=== PATIENT | male | born 1980 | race Caucasian/White ===

== ENCOUNTER 2019-07-03 13:51 | Inpatient (IN) | payer OTHER ==
[~2019-07-03] VITALS: Ht 170.2 cm; Wt 84.5 kg
--- NOTE | 2019-07-03 14:05 | NUR ---
PT BROUGHT IN BY AMBULANCE WITH CC OF VOMITING BLOOD SECONDARY TO OVEDOSE OF "50-60" PILLS INCLUDING TEGRETOL AND TRILEPTAL PER PT. HE STATES HE DOES NOT KNOW THE REST OF MEDS, PER NURSE AT [facility] HE POSSIBLY TOOK MOTRIN WELL. UPON ASSESSMENT PT STATES HE ATTEMPTED TO COMMIT SUICIDE BY OVERDOSE AND HEARS VOICES THAT TELL HIM TO DO IT. PER MEDIC PT VOMITED APPROX 300ML OF BLOODY EMESIS ON SCENE. PT ARRIVED REPORTING NAUSEA, NGT TO LEFT NARE INSERTED BY [facility]. PT RECEIVED 300ML NS BOLUS TEMPLE MARKER. PT CALM AND COOPERATIVE. A/O X4. RESP EVEN/UNLABORED. 2 [facility] GUARDS AT BEDSIDE.
--- NOTE | 2019-07-03 14:15 | NUR ---
DR. WOODRUFF AT BEDSIDE TO SUCTION PT NGT.
--- NOTE | 2019-07-03 14:24 | NUR ---
PER DR WOODRUFF, KEEP PT ON CONINUOUS SUCTIONING FOR 30 MINUTES AND MONITOR FOR OUTPUT.
--- NOTE | 2019-07-03 14:35 | NUR ---
PT MADE AWARE THE NEED TO COLLECT URINE SAMPLE. URINAL PLACED AT BEDSIDE.
[2019-07-03 14:52] LABS: BASOPHIL % 0.4 % (0-2); PLATELET COUNT 221 x10^3mcL (130-400); RED CELL DISTRIBUTION WIDTH 14.3 % (11.5-14.5)
--- NOTE | 2019-07-03 14:59 | NUR ---
CONTINUOUS SUCTION TURNED OFF. NO OUTPUT NOTED TO SUCTION CANISTER. MADE AWARE. NO NEW ORDERS OBTAINED.
--- NOTE | 2019-07-03 15:00 | NUR ---
PT REQUESTING WATER. PER DR WOODRUFF, PT TO BE NPO FOR NOW. PT MADE AWARE.
--- NOTE | 2019-07-03 15:01 | NUR ---
SPOKE WITH JOSHUA AT POISON CONTROL. DISCUSSED PT'S CASE AND RECEIVED RECOMMENDATION TO OBTAIN CMP,LIVER FUNCTION, EKG, TYLENOL, ASA AND BLOOD ALCOHOL LEVEL. ALSO, GET TEGRETOL LEVEL AND ENSURE THAT IT IS TRENDING DOWN X2. SHE STATED TO REPEAT EVERY 4-6 HOURS. ALSO, TO CHECK EKG THAT QRS DURATION IS LESS THAN 120 SEC, IF NOT PUSH 2 AMPS BICARB BOLUSES. ALSO, IF THE QTC GREATER THAN 104 GET THE K+, CA+ AND MAG LEVEL ON HIGH END OF NORMAL. IF SEIZURE ACTIVITY PUSH ATIVAN.
[2019-07-03 15:04] LABS: CALCIUM 7.8 mg/dL (8.5-10.1); CARBON DIOXIDE 26.2 mmol/L (21-32); CHLORIDE SERUM 107 mmol/L (98-107); GFR1 > 60 mL/min; GLUCOSE SERUM 120 mg/dL (74-106); POTASSIUM SERUM 4.2 mmol/L (3.5-5.1); SODIUM SERUM 139 mmol/L (136-145)
[2019-07-03 15:26] LABS: ALKALINE PHOSPHATASE 105 U/L (46-116); ALT/SGPT 809 U/L (16-63); AST/SGOT 318 U/L (15-37); T4(THYROXINE) 6.5 ug/dL (4.7-13.3)
[2019-07-03] MEDS ORDERED: ABILIFY20 M1 PO (15:29)
[2019-07-03] MEDS ORDERED: EFFEXOR-XR75 MG PO (15:29)
[2019-07-03] MEDS ORDERED: BUSPIRONE HCL30 MG PO (15:29)
--- NOTE | 2019-07-03 15:30 | NUR ---
PT THREW UP 650 ML OF DARK RED BLOOD. MADE AWARE.
[2019-07-03 15:31] LABS: ALBUMIN 2.8 g/dL (3.4-5.0); TOTAL PROTEIN, SERUM 6.1 g/dL (6.4-8.2)
--- NOTE | 2019-07-03 15:32 | NUR ---
PT PULLED OUT NG TUBE. PT STATED "IT'S UNCOMFORTABLE". NG TUBE INTACT. MD MADE AWARE. RECEIVED VERBAL ORDER TO PLACE ANOTHER NG TUBE. PT MADE AWARE. PT REFUSING. MD AWARE.
--- NOTE | 2019-07-03 15:53 | NUR ---
PT HAD ANOTHER EPISODE OF VOMITING. UNMEASURABLE. VOMIT IS DARK RED IN COLOR WITH BLOOD CLOTS. PT C/O NAUSEA AND DR. WOODRUFF MADE AWARE.
--- NOTE | 2019-07-03 15:59 | NUR ---
AFTER DR WOODRUFF MADE AWARE OF 2ND EPISODE OF VOMITING. DR WOODRUFF ASKED TO SET UP FOR INTUBATION.
--- NOTE | 2019-07-03 16:03 | NUR ---
DR WOODRUFF AT BEDSIDE WITH RT. PREPARING FOR INTUBATION.
--- NOTE | 2019-07-03 16:07 | NUR ---
PT INTUBATED AT THIS TIME BY DR WOODRUFF. RT DELONTE AND RT JESSICA AT BEDSIDE TO SECURE TUBE. 20 MG OF ETOMIDATE AND 80 MG OF SUCCS GIVEN PRIOR TO INTUBATON.
--- NOTE | 2019-07-03 16:12 | NUR ---
BILATERAL SOFT RESTRAINTS PLACED ON PT. +PMSC NOTED.
[2019-07-03 16:29] VITALS: BP 106/58
--- NOTE | 2019-07-03 16:33 | NUR ---
PT AGITATED. SITTING UP IN BED. INCREASED PROPOFOL 20MCG/KG.
[2019-07-03 16:35] VITALS: BP 88/49
--- NOTE | 2019-07-03 16:42 | NUR ---
PT CONTINUING TO BE AGITATED AND SITTING UP IN [facility]. PROPOFOL TITRATED TO 30MCG/KG.
--- NOTE | 2019-07-03 16:52 | NUR ---
PT CONTINUING TO KICK HIS LEGS. PROPOFOL TITRATED TO 40 MCG/KG.
--- NOTE | 2019-07-03 17:06 | NUR ---
PT CONTINUES TO SIT UP IN GURNEY AND UNCOMFORTABLE WITH INTUBATION TUBE. PROPOFOL TITRATED TO 50 MCG/KG.
--- NOTE | 2019-07-03 17:24 | NUR ---
SPOKE WITH DR. SALES ON THE PHONE. LET HIM KNOW THAT PT CONTINUES TO BE AGITATED AND IS MAXED OUT ON HIS PROPOFOL. REPORTS THAT HE WILL TAKE A LOOK AT THE ORDERS.
--- NOTE | 2019-07-03 17:24 | NUR ---
ORDAINED MINISTER CALLED ICU TO FIND OUT BED PLACEMENT HOWEVER THERE IS NONE AT THIS TIME. ICU STATED WILL NOT HAVE A BED FOR THSI PT TIL AFTER SHIFT CHANGE TONIGHT.
--- NOTE | 2019-07-03 17:40 | NUR ---
DR. CHADWICK IN TO ASSESS PT IN ED. ATIVAN IV 2MG ORDER ORDERED AND GIVEN. PT NOW SLEEPING AND NO LONGER PULLING AT LINES AND NO LONGER AGITATED.
--- NOTE | 2019-07-03 17:51 | NUR ---
DR CHADWICK ENTERED ROOM TO EVALUATE PT. NOTED NO OUTPUT TO SUCTION CANISTER. ONLY DARK RED, THICK BLOOD NOTED INSIDE NG TUBE. ASKED TO IRRIGATE NG TUBE THEN CLAMP. IRRIGATED WITH NSS UNTIL FLUID CLEAR THEN CLAMPED. 420 NSS INSTILLED. OUTPUT 900 ML OF DARK RED FLUID WITH SOME THICK CLOTS NOTED TO SUCTION CANISTER.
[2019-07-03 17:57] LABS: AMPHETAMINE QUAL UR NONE DETECTED (See below)
--- NOTE | 2019-07-03 18:01 | NUR ---
BP NOTED TO BE 61/40, MAP 46. CALLED DR SALES. PER DR SALES, HANG 500 ML NS BOLUS. AND MONITOR BP. INITIATED AT THIS TIME.
--- NOTE | 2019-07-03 18:25 | NUR ---
500ml ns bolus completed. new bp 94/56 (68). profolol titrated up to 40mcg/kg
--- NOTE | 2019-07-03 18:27 | NUR ---
PT PROVIDED WITH SEVERAL WARM BLANKETS.
--- NOTE | 2019-07-03 18:36 | NUR ---
PT APPEARS TO BE AGITATED STILL. PROPOFOL TITRATED TO 50 MCG/KG. BP 110/56, MAP 92. WILL CONTINUE TO MONITOR.
--- NOTE | 2019-07-03 18:42 | NUR ---
SPOKE TO DR CHADWICK ON THE PHONE REGARDING ADMINISTRATION OF MAG CITRATE. MAG CITRATE TO BE GIVEN FOR CONSTIPATION, HOWEVER, KUB XRAY HAS NOT BEEN OBTAINED. PER DR CHADWICK, OKAY TO HOLD MAG CITRATE UNTIL RESULTS FROM KUB ARE BACK.
--- NOTE | 2019-07-03 19:14 | NUR ---
PT SLEEPING IN GURNEY AT THIS TIME. PT APPEARS TO BE IN NO ACUTE DISTRESS. PT INTUBATED. PT F/C INTACT DRSINING CLEAR LISA URINE TO GRAVITY. 2 CO AT BEDSIDE.
--- NOTE | 2019-07-03 19:17 | NUR ---
DR. BELTRAN MADE AWARE OF BP OF 85/53. N/O OF 500ML NS BOLUS. INITIATED.
--- NOTE | 2019-07-03 19:18 | NUR ---
PER DR. BELTRAN PROPOFOL DRIP REDUCED TO 40MCG/KG AT THIS TIME.
--- NOTE | 2019-07-03 19:48 | NUR ---
PT CONTINUING TO MOVE ABOUT IN [facility] [place]. ATIVAN 2MG SLOW IVP ADMINISTERED PER PRN ORDER.
--- NOTE | 2019-07-03 19:51 | NUR ---
500 ML NS BOLUS COMPLETED. BP 99/72, MAP 81.
--- NOTE | 2019-07-03 20:12 | NUR ---
PT CONTINUES TO MOVE AROUND AND IS AGITATED. SPOKE TO DR SALES ON THE PHONE. DR SALES AWARE OF PT'S AGITATION AND THAT WHEN THE PROPOFOL IS MAXED OUT, PT BECOMES HYPOTENSIVE AND THAT PRN ATIVAN HAS BEEN GIVEN ALREADY. PER DR SALES, HE WILL PUT IN ORDERS. CONTINUING TO REORIENT PT TO HIS SURROUNDINGS AND COMFORT NEEDS MET AT THIS TIME.
--- NOTE | 2019-07-03 20:18 | NUR ---
SPOKE TO DR CHADWICK OVER THE PHONE REGARDING MAG CITRATE ORDER S/P RESULTS OF KUB XRAY. PER DR CHADWICK, CONTINUE WITH ORDER OF MAG CITRATE VIA OGT AT THIS TIME.
--- NOTE | 2019-07-03 20:43 | NUR ---
2ND BOTTLE OF PROPOFOL INITIATED. UPON ASPIRATION OF NG TUBE PRIOR TO ADMINISTRATION OF MAG CITRATE, 20 ML DARK RED BLOOD ASPIRATED. MED HELD. WILL CALL DR CHADWICK.
[2019-07-03 20:45] VITALS: BP 102/60
--- NOTE | 2019-07-03 21:02 | NUR ---
CALLED DR CHADWICK REGARDING MAG CITRATE PER NGT ORDER; UPDATED HIM ABOUT DARK RED BLOOD ASPIRATION; PER DR CHADWICK, HOLD MED, KEEP NGT CLAMPED.
--- NOTE | 2019-07-03 21:31 | NUR ---
PT RESTING COMFORTABLY. OGT IN PLACE. SOFT WRIST RESTRAINTS IN PLACE WITH MD ORDER. + PMCS. CAP REFILL < 3 SEC. REMAINS ON CYTOLOGY LABORATORY MANAGER AND PULSE OX. ALL NEEDS MET AT THIS TIME. TURNED AND REPOSITIONED. WILL MONITOR.
[2019-07-03 22:19] VITALS: BP 102/56
--- NOTE | 2019-07-03 22:29 | NUR ---
PT RESTING IN GURNEY COMFORTABLY. SOFT WRIST RESTRAINTS IN PLACE. CAP REFILL < 3 SEC. 2 INTERMEDIATE GUARDS SWITCHED OUT FOR 2 NEW INTERMEDIATE GUARDS.
--- NOTE | 2019-07-03 23:02 | NUR ---
POISON CONTROL CALLED AND WANTED TO KNOW IF RECOMMENDATIONS WERE FOLLOWED UP ON. POISON CONTROL RECOMMEND TEGRETOL LEVEL BE REPEATED DUE TO IT BEING ELEVATED AT 13.3 UNTIL IT TRENDS DOWN. WILL MAKE MD AWARE.
--- NOTE | 2019-07-03 23:07 | NUR ---
SPOKE WITH DR. Rose Mary SALES TO REQUEST TEGRETOL LEVEL REDRAW PER POISON CONTROL REQUEST. DR. ASLES GAVE ORDER. ORDER PLACED.
--- NOTE | 2019-07-03 23:32 | NUR ---
RECTAL THERMOMETER INSERTED FOR CONTINUOUS TEMPERATURE READING. PT TOLERATED. PT REPOSITIONED IN POSITION OF COMFORT IN SUPINE.
--- NOTE | 2019-07-03 23:45 | NUR ---
PRIOR TO ABX ADMINISTRATION, NOTED THAT BLOOD CULTURES HAD NOT BEEN ORDERED. SPOKE WITH DR SALES ON THE PHONE, ASKED PUT THE ORDER FOR BLOOD CULTURES X2 PRIOR TO ABX ADMINISTRATION.
[2019-07-04] VITALS (17 sets, daily range): BP systolic 82–108; BP diastolic 41–73
--- NOTE | 2019-07-04 00:06 | NUR ---
PT RESTING COMFORTABLY IN BED. NO ACUTE DISTRESS NOTED. ALL NEEDS MET AT THIS TIME. WILL CONT TO MONITOR.
--- NOTE | 2019-07-04 01:01 | NUR ---
IV PROTONIX INITIATED PER ORDER. PT RESTING COMFORTABLY IN GURNEY WITH EYES CLOSED, APPEARS COMFORTABLE. 2 GUARDS REMAIN AT BEDSIDE. NAD NOTED.
--- NOTE | 2019-07-04 01:27 | NUR ---
REPORT GIVEN TO RN MARJAN TO ASSUME CARE FOR PT.
--- NOTE | 2019-07-04 02:04 | NUR ---
ASSUMED PT CARE AT THIS TIME. PT RESTING IN [facility]. RESP E/U, APPEARS IN NO DISTRESS.
--- NOTE | 2019-07-04 02:15 | NUR ---
CALLED DR NORIS SALES FOR SEDATION ORDER; PROPOFOL DRIP , TITRATE PER PROTOCOL FOR SEDATION. ORDER IN CHART.
--- NOTE | 2019-07-04 03:35 | NUR ---
PT RESTING IN GURNEY WITH EYES CLOSED. RESP E/U, APPEARS IN NO ACUTE DISTRESS. NO ACUTE CHANGES IN PT STATUS. CORRECTIONS OFFICERS X2 AT BEDSIDE.
--- NOTE | 2019-07-04 04:30 | NUR ---
PT REMAINS RESTING IN POSITION OF COMFORT; RESP E/U, APPEARS IN NO DISTRESS. NO S/S AGITATION. CORRECTIONS OFFICERS X2 AT BEDSIDE. AWAITING ICU BED FOR ADMISSION.
--- NOTE | 2019-07-04 05:35 | NUR ---
REPORT CALLED TO STEPHANIE EUGENE
--- NOTE | 2019-07-04 06:20 | NUR ---
RECEIVED PT FROM ED TRANSFER WITH ED NURSE AND RT AT BEDSIDES, TWO GUARDS FOLOWED. PT IS INTUBATED AND SEDATED ON PROPOFOL 40MCG/KG/HR, RSS 4. PT RESPONSED TO TACTILE STIMULI WITH BODY WITHDRAWN. PT BREATHING ON VENT AC: TV 500, PEEP 5, RT 16, FIO2 30%. BREATHING EVEN, UNLABORED. O2 SAT 100%. OGT IS SECURED TO ETT, BLOODY FLUID NOTED IN OGT. JURADO IN PLACE, DARK TEA COLOR URINE. HANDCUFFS ON NURY ANKLES. PT IS ON NURY SOFT WRIST RESTRAINTS. IV ON RFA 20G, AND LH 22G. PROTONIX DRIP INFUSING AT 10ML/HR. PT'S VS: HR 97 BPM, BP 100/66, O2 SAT 100%, RR 16. WILL CONTINUE PT'S CARE.
--- NOTE | 2019-07-04 06:45 | NUR ---
PT'S IS WELL SEDATED RSS 4, BP 85/50. TITRATED DOWN PROPOFOL FROM 40MCG/KG/HR TO 30MCG/KG/HR.
--- NOTE | 2019-07-04 07:12 | NUR ---
PT WOKE UP, OPEN EYES SPOTANEOUS, TRYING TO SIT UP. PT IS ON NURY SOFT RESTRAINTS. TITRATE UP PROPOFOL FROM 30 TO 40MCG/KG/HR.
--- NOTE | 2019-07-04 07:47 | NUR ---
RT HAMM AT BEDSIDE APPLIED BREATHING TREATMENT. LOWER PROPOFOL FROM 40MCG/KG/HR TO 25MCG.KG/HR.
[2019-07-04 08:02] LABS: BASOPHIL % 0.4 % (0-2); PLATELET COUNT 165 x10^3mcL (130-400); RED CELL DISTRIBUTION WIDTH 14.4 % (11.5-14.5)
[2019-07-04 08:12] LABS: CALCIUM 7.3 mg/dL (8.5-10.1); CARBON DIOXIDE 26.5 mmol/L (21-32); CHLORIDE SERUM 111 mmol/L (98-107); CREATININE SERUM 1.1 mg/dL (0.7-1.3); GFR1 > 60 mL/min; GLUCOSE SERUM 82 mg/dL (74-106); POTASSIUM SERUM 4.1 mmol/L (3.5-5.1); SODIUM SERUM 142 mmol/L (136-145)
--- NOTE | 2019-07-04 09:26 | NUR ---
DR. CHADWICK PERFORMED EGD AT BEDSIDE. MW TEAR IS FOUND, NO ACTIVE BLEEDING AT THIS TIME. DOBHOFF TUBE IS INSERTED UNDER SCOPE. PER DR. CHADWICK, IT IS OK TO START USE IT FOR MEDS AND TUBE FEEDING. OGT IS REMOVED DURING PROCEDURE. PT IS SEDATED WITH VERSED AND FENTANYL DURING PROCEDURE. PT TOLERATED WELL. WILL CONTINUE TO MONITOR.
--- NOTE | 2019-07-04 09:46 | NUR ---
POISON CONTROL STAFF STEPHANY CALLED AND CHECKED PT'S STATUS. PT'S CONDITION UPDATED. NO FURTHER RECOMMENDATION GIVEN BY STEPHANY AT THIS TIME. SHE STATED WILL CALL BACK TO CHECK TOMORROW.
--- NOTE | 2019-07-04 10:19 | NUR ---
STOP PROPOFOL FOR SEDATION VACATION TO GET READY TO WEAN CPAP. PT'S BP 83/58 (63). PT OPEN EYES TO PAINFUL STIMULI. WILL CONTINUE TO MONITOR PT'S BP.
[2019-07-04 11:03] LABS: ALKALINE PHOSPHATASE 75 U/L (46-116); ALT/SGPT 699 U/L (16-63); AST/SGOT 325 U/L (15-37); BILIRUBIN DIRECT 1.27 mg/dL (0.0-0.2); BILIRUBIN TOTAL 1.58 mg/dL (0.20-1.00)
[2019-07-04 11:05] LABS: ALBUMIN 2.6 g/dL (3.4-5.0); TOTAL PROTEIN, SERUM 4.9 g/dL (6.4-8.2)
--- NOTE | 2019-07-04 11:40 | NUR ---
PT IS AWAKE, OPEN EYES SPONTANEOUS. PT FOLLOW SIMPLE COMMAND. REORIENTED PT. PT IS PUT ON CPAP MODE. WILL CONTINUE TO MONITOR.
--- NOTE | 2019-07-04 12:35 | NUR ---
DR. BELTRAN ASSESS PT AT BEDSIDE. PT IS AWAKE, EYES OPEN SPONTANEOUS, FOLLOWED SIMPLE COMMAND. PER DR. BELTRAN, RT NORIS SWITCH PT BACK ON AC MODE. PROPOFOL IS RESUMED AT 20MCG/KG/HR. WILL CONTINUE TO MONITOR.
--- NOTE | 2019-07-04 12:55 | NUR ---
START PT ON DOBHOFF JEVITY TUBE FEEDING AT INITIAL RATE 30ML/HR WFW 30ML Q4H. WILL GRADUALLY ADVANCE Q6H TO GOAL 50ML/HR PER ORDER IF PT TOLERATES WELL.
--- NOTE | 2019-07-04 16:06 | NUR ---
PT IS AWAKE AND TRYING TO REMOVE TUBE. INCREASED PROPOFOL TO 30MCG/KG/HR, AND REORIENTED PT.
--- NOTE | 2019-07-04 19:05 | NUR ---
RECIEVED REPORT FROM VALORIE BROWN. NURSING UPDATES. POC DISCUSSED. SEE SHIFT ASSESSMENT FOR ASSESSMENT.
--- NOTE | 2019-07-04 20:00 | NUR ---
NO ACUTE CHANGES. WILL CONT TO MONITOR.
--- NOTE | 2019-07-04 21:00 | NUR ---
NO ACUTE CHANGES. WILL CONT TO MONITOR.
--- NOTE | 2019-07-04 21:44 | NUR ---
PT W/ AGITATION. CALMING MEASURES IN PLACE W/ NO AVAIL. TITRATED PROPOFOL FROM 10MCG/KG/MIN TO 30MCG/KG/MIN. WILL CONT TO MONITOR.
--- NOTE | 2019-07-04 22:38 | NUR ---
PT W/ TRENDING BP DOWN. TITRATED PROPOFOL FROM 30MCG/KG/MIN TO 10MCG/KG/MIN. WILL CONT TO MONITOR.
[2019-07-05] VITALS (11 sets, daily range): BP systolic 86–109; BP diastolic 39–68
--- NOTE | 2019-07-05 00:49 | NUR ---
PT W/ AGITATION. TITRATED PROPOFOL FROM 10MCG/KG/MIN TO 30MCG/KG/MIN. WILL CONT TO MONITOR. BP WNL.
--- NOTE | 2019-07-05 01:00 | NUR ---
NO ACUTE CHANGES. WILL CONT TO MONITOR.
--- NOTE | 2019-07-05 02:00 | NUR ---
PT TOLERATING WELL. TITRATED PROPOFOL FROM 30MCG/KG/MIN TO 10MCG/KG/MIN. WILL CONT TO MONITOR. BP WNL.
--- NOTE | 2019-07-05 02:00 | NUR ---
NO ACUTE CHANGES. WILL CONT TO MONITOR.
--- NOTE | 2019-07-05 02:51 | NUR ---
NO ACUTE CHANGES. WILL CONT TO MONITOR.
--- NOTE | 2019-07-05 04:00 | NUR ---
NO ACUTE CHANGES. WILL CONT TO MONITOR.
--- NOTE | 2019-07-05 04:54 | NUR ---
NO ACUTE CHANGES. WILL CONT TO MONITOR.
--- NOTE | 2019-07-05 05:00 | NUR ---
PT TOLERATING WELL. TITRATED PROPOFOL FROM 10MCG/KG/MIN TO 5 MCG/KG/MIN. WILL CONT TO MONITOR. BP WNL.
--- NOTE | 2019-07-05 05:29 | NUR ---
PT W/ AGITATION. CALMING MEASURES IN PLACE W/ NO AVAIL. PT INDICATING HE WANTS ETT OUT. ADM PRN ATIVAN 2MG *(SEE MAR)*. PT TOLERATING WELL. WILL CONT TO MONITOR.
[2019-07-05 06:55] LABS: CALCIUM 7.3 mg/dL (8.5-10.1); CHLORIDE SERUM 111 mmol/L (98-107); CREATININE SERUM 0.8 mg/dL (0.7-1.3); GFR1 > 60 mL/min; GLUCOSE SERUM 114 mg/dL (74-106); POTASSIUM SERUM 3.6 mmol/L (3.5-5.1); SODIUM SERUM 142 mmol/L (136-145)
--- NOTE | 2019-07-05 07:22 | NUR ---
RECEIVED PT'S REPORT FROM LEAVING NURSE. PT IS SEDATED ON PROPOFOL 5 MCG/KG/HR, RSS 4. PT IS AROUSED, OPEN EYES SPONTANEOUS TO VERBAL AND TACTILE STIMULI. TOW GUARDS AT BEDSIDE. PT IS ON NURY SOFT WRIST RESTRAINTS. HANDCUFF ON LEFT ANKLE. PT IS INTUBATED ON VENT AC MODE: TV 500, PEEP 5, FIO2 30%, RT 14, O2 SAT 100%. PT IS ON JEVITY FEEDING VIA DOBHOFF AT 50ML/HR WFW 30ML Q4H. JURADO IN PLACE, DRAINING VIA GRAVITY, YELLOW COLOR URINE. IV ON RFA AND LH, PATENT, INTACT. WILL CONTINUE PT'S CARE.
[2019-07-05 07:24] LABS: BASOPHIL % 0.6 % (0-2); PLATELET COUNT 145 x10^3mcL (130-400); RED CELL DISTRIBUTION WIDTH 14.3 % (11.5-14.5)
--- NOTE | 2019-07-05 07:43 | NUR ---
PT'S CRITICAL LAB H/H 6.0. CALLED AND MADE DR. SALES AWARE. OBTAINED TELEPHONE ORDER: 2 UNITS BLOOD TRANSFUSION. PROPOFOL IS TURNED OFF AT THIS TIME TO GET READY FOR WEANING CPAP TODAY.
--- NOTE | 2019-07-05 07:57 | NUR ---
PT IS PUT ON CPAP. PT IS AWAKE, FOLLOW COMMAND AT THIS TIME.
--- NOTE | 2019-07-05 10:20 | NUR ---
OBTAINED DR. SALES'S TELEPHONE ORDER: TYLENOL 650MG TAB PO, BENADRYL 25MG CAP PO, LASIX 20MG PO ONCE FOR BLOOD TRANSFUSION.
--- NOTE | 2019-07-05 10:35 | NUR ---
PT A/O X 3. INFORMED OF NEED FOR BLOOD TRANSFUSION. RISK AND BENEFITS EXPLAINED TO THE PATIENT. PT VERBALIZED UNDERSTANDING AND SIGNED CONSENT AT THIS TIME WITNESSED BY MY SELF. PRIMARY RN AWARE.
--- NOTE | 2019-07-05 10:44 | NUR ---
POISON CONTROL STAFF ROSEANN CALLED FOR PT'S CONDITION. PT'S STATUS UPDATED. PT IS EXTUBATED AT 1025, TOLERATE WELL, BREATHING ON O2 2L VIA NC, EVEN, UNLABORED. PER ROSEANN, POISON CONTROL WILL CLOSED THIS CASE AT THIS POINT.
[2019-07-05 11:11] LABS: rbc morphology (normal/abnorm) ABNORMAL (NORMAL)
--- NOTE | 2019-07-05 12:30 | NUR ---
DR. SALES CAME AND ASSESSED PT AT BED SIDE. PT'S CONDITION UPDATED.
--- NOTE | 2019-07-05 12:34 | NUR ---
BED SIDE SWALLOW SCREEN DONE PER DR. BELTRAN. PT SWALLOWED APPLESAUCE, JELLO, JUICE WITHOUT CHOKING AND COUGHING. DOBHOFF REMOVED PER DR. BELTRAN IF PT PASS SWALLOW SCREEN. PT REMAIN CALM AND COOPERAE WITH CARE.
--- NOTE | 2019-07-05 13:09 | NUR ---
START PT ON 1ST UNIT BLOOD TRANSFUSION. VS: TEMP 98.2, BP 98/51, HR 106, O2 SAT 100%. TYLENOL AND BENADRYL GIVEN BEFORE BLOOD TRANSFUSION PER ORDER.
--- NOTE | 2019-07-05 13:57 | NUR ---
OBTAINED DR. SALES TELEPHONE ORDER: START PT CLEAR LIQUID DIET. AFTER 2 UNITS BLOOD TRANSFUSION, REPEAT PT'S LAB CBC.
--- NOTE | 2019-07-05 17:18 | NUR ---
2ND UNIT BLOOD TRANSFUSION DONE. PT TOLERATE WELL. POST TRANSFUSION VS: TEMP 98.8, BP 99.0, HR 88, O2 SAT 100%, RR 24.
[2019-07-05 18:17] LABS: BASOPHIL % 0.4 % (0-2); PLATELET COUNT 148 x10^3mcL (130-400)
[2019-07-05 18:18] LABS: RED CELL DISTRIBUTION WIDTH 15.4 % (11.5-14.5)
--- NOTE | 2019-07-05 18:57 | NUR ---
PT TOLERATE WELL CL DIET. PT BREATH ON RA, EVEN, UNLABORED. AFTER 2 UNITS BLOOD TRANSFUSION, PT'S H/H INCREASED FROM 6.0/18 TO 8.1/25. PT REMAIN CALM AND COOPERATE WITH CARE. WILL ENDORSE PT'S CARE TO ONCOMING NURSE.
--- NOTE | 2019-07-05 19:05 | NUR ---
RECEIVED REPORT FROM STEPHANIE EUGENE. ASSUMING ALL CARE
--- NOTE | 2019-07-05 19:30 | NUR ---
RECEIVED PT LAYING IN BED. PT IS A/OX4. SPEECH IS SLOW BUT CLEAR. ABLE TO MAKE NEEDS KNOWN/FOLLOW COMMANDS. BREATHING IS E/U ON RA. LUNGS SOUND CLEAR BILATERALLY. SYMMETRICAL CHEST EXPANSION NOTED. DENIES ANY SOB. LH AND RFA IV'S INTACT/SECURED, D5 1/2NS INFUSING @ 100 ML/HR. F/C INTACT/SECURED, DRAINING VIA GRAVITY WITH YELLOW COLORED URINE. 2 FCI GUARDS AT BEDSIDE, PT'S LLE CUFFED TO BED. PT CONNECTED TO FULL RUNSTITCHING MACHINE OPERATOR AND CONTINOUS PULSE OX. BED IN LOW POSITION. CALL LIGHT IN REACH. WILL CONT TO MONITOR
--- NOTE | 2019-07-05 22:10 | NUR ---
PT'S O2 SATURATION NOTED 87% ON RA WHILE SLEEPING. PT PLACED ON 2 LPM VIA NC. O2 SATURATION INCREASED TO 98%. WILL CONT TO MONITOR
[2019-07-06 03:10] VITALS: BP 96/57
[2019-07-06 04:51] LABS: BASOPHIL % 0.7 % (0-2); PLATELET COUNT 152 x10^3mcL (130-400)
[2019-07-06 04:58] LABS: CALCIUM 7.6 mg/dL (8.5-10.1); CARBON DIOXIDE 30.5 mmol/L (21-32); CHLORIDE SERUM 109 mmol/L (98-107); GFR1 > 60 mL/min; GLUCOSE SERUM 109 mg/dL (74-106); POTASSIUM SERUM 3.6 mmol/L (3.5-5.1); RED CELL DISTRIBUTION WIDTH 15.5 % (11.5-14.5); SODIUM SERUM 142 mmol/L (136-145)
--- NOTE | 2019-07-06 07:15 | NUR ---
RECEIVED PT FROM MOISÉS RN. PT FOUND RESTING WITH BOTH EYES CLOSED. EASILY AROUSABLE TO VERBAL STIMULI. AA/OX4. FOUND ON ROOM AIR. O2 SAT 97%. RR EVEN/UNLABORED. VS STABLE AT THIS TIME. NO S/S OF ACUTE DISTRESS. NO CHEST PAIN. CALM/COOPERATIVE. C/O MILD INTERMITTENT NAUSEA. NO C/O PAIN AT THIS TIME. IV INFILTRATED TO RFA, SWELLING NOTED. IV REMOVED, CATHETER IN TACT. NO REDNESS NOTED. NO S/S OF INFECTION TO SITE. PRESSURE APPLIED. IV NOT FLUSHING TO LH, C/O PAIN TO SITE. NO REDNESS, NO SWELLING, NO INFILTRATION. IV REMOVED ,CATHETER IN TACT. PRESSURE APPLIED. HOB ELEVATED. EATING BREAKFAST. TOLERATING CLEAR LIQUID DIET WELL. CIM, SHACKLE TO LEFT ANKLE, SKIN WARM, DRY, INTACT. NO REDNESS/DISCOLORATION NOTED. PULSES +2 BLE/BUE, CAP REFILLS <3 SEC BUE/BLE. CIM OFFICER AT BEDSIDE. INSTRUCTED PT TO USE CALL LIGHT TO CALL FOR ASSISTANCE PRN. WILL CONT. TO MONITOR.
--- NOTE | 2019-07-06 07:16 | NUR ---
REPORT GIVEN TO ERICA EUGENE. ALL QUESTIONS/CONCERNS ADDRESSED. ENDORSING ALL CARE
[2019-07-06 07:52] VITALS: Ht 170.2 cm; Wt 84.5 kg
[2019-07-06 08:04] VITALS: BP 92/47
[2019-07-06 09:53] VITALS: BP 92/47
--- NOTE | 2019-07-06 10:13 | NUR ---
BP TRENDING LOW, 96/[address] SALES MADE AWARE. PT DROWSY BUT EASILY AROUSABLE TO VERBAL STIMULI. DENIES DIZZINESS. NO SOB ON ROOM AIR. HR 100. NO CHEST PAIN. NSR ON TELE. RECEIVED TELEPHONE ORDER FOR IV NS BOLUS 1L ONE TIME. REPEATED BACK TO PHYSICIAN, VERFIED, ENTERED, CARRIED OUT. IV WNL TO RFA, 22 GAUGE. PATENT AND FLUSHING WELL. RECEIVED TELEPHONE ORDER FROM DR. SALES TO START BLADDER TRAINING AND D/C JURADO, ADVANCE DIET TO REGULAR DIET. REPEATED BACK TO PHYSICIAN. VERIFIED. ORDERS ENTERED. SHACKLE IN PLACE TO LEFT ANKLE. SKIN WARM, DRY, INTACT. CIM OFFICERS X2 AT BEDSIDE. SI PRECAUTIONS IN PLACE. PT CALM/COOPERATIVE AT THIS TIME. BED IN LOW POSITION. CALL LIGHT WITHIN REACH. WILL CONT. TO MONITOR.
[2019-07-06 11:00] VITALS: BP 98/43
--- NOTE | 2019-07-06 11:25 | NUR ---
BLADDER TRAINING COMPLETE. JURADO DISCONTINUED PER PHYSICIAN ORDER, BALLOON DEFLATED, IN TACT. URINE OUTPUT 1300CC FROM JURADO, YELLOW/CLEAR. TOLERATED REMOVAL WELL. INSTRUCTED TO USE URINAL PRN FOR VOIDING, VERBALIZED UNDERSTANDING. NS BOLUS COMPLETE. VS: BP 98/43, HR 103, TEMP 98.5F ORAL, RR 16, O2 SAT 98% ON ROOM AIR. IV WNL TO RFA, IVF FLOWING. PATENT AND FLUSHES WELL. SITE WNL. CALM/COOPERATIVE. SHACKLED TO LEFT ANKLE IN TACT. SKIN WARM, DRY, INTACT, COLOR NORMAL FOR ETHNICITY. CIM GUARDS X2 AT BEDSIDE. SUICIDE PRECAUTIONS IN PLACE. NO VERBALIZATION FOR SI/HOMICIDAL IDEATION. BED IN LOW POSITION. CALL LIGHT WITHIN REACH. WILL CONT. TO MONITOR.
--- NOTE | 2019-07-06 12:53 | NUR ---
ASSISTED PT TO SIT AT BEDSIDE IN CHAIR. VS STABLE. BP 100/76, HR 102, O2 SAT 99% ON ROOM AIR. RR EVEN/UNLABORED. CHEST EXPANSION SYMMETRICAL. DENIES SOB. C/O MILD DIZZINESS. FALL PREC IN PLACE. TOLERATING REGULAR DIET WELL. NO N/V. IV WNL TO LFA, IVF FLOWING. CALM/COOPERATIVE. CIM GUARDS X2 AT BEDSIDE. BED IN LOW POSITION. CALL LIGHT WITHIN REACH. WILL CONT. TO MONITOR.
[2019-07-06 13:03] VITALS: BP 100/76
--- NOTE | 2019-07-06 13:11 | NUR ---
PT ASSISTED BACK TO BED PER PT REQUEST. AMBULATORY WITH FULL ROM, GAIT STEADY. VS STABLE. NO S/S OF ACUTE DISTRESS. NO SOB ON ROOM AIR. IV WNL TO LFA. LINEN CHANGED. SHACKLE TO LEFT ANKLE, SKIN WARM, DRY, INTACT. BED IN LOW POSITION. CALL LIGHT WITHIN REACH. WILL CONT. TO MONITOR.
--- NOTE | 2019-07-06 14:00 | NUR ---
PATIENT WAS BROUGHT UP FROM ICU BY ERICA RN/ PATIENT STABLE, DENIES PAIN, STATES THAT HE FEELS DIZZY AT TIMES. SYSTOLIC BLOOD PRESSURE AT THIS TIME WAS 99. EDUCATED PATIENT TO CHANGE POSITIONS SLOWLY. CALL LIGHT PLACED WITHIN REACH,X2 GUARDS AT BEDSIDE. WILL CONTINUE TO MONITOR
--- NOTE | 2019-07-06 14:11 | NUR ---
VOIDS FREELY WITH URINAL. OUTPUT 775CC, YELLOW/CLEAR. DENIES PAIN W/ URINATION. AA/OX4 LAYING IN BED DRINKING SODA. CALM/COOPERATIVE. VS STABLE. BED IN LOW POSITION. CALL LIGHT WITHIN REACH. WILL CONT. TO MONITOR.
--- NOTE | 2019-07-06 14:34 | NUR ---
PT BEING TRANSFERRED TO [facility] ROOM 226B. ENDORSED TO VALORIE WELLS. PT AA/OX4 LAYING IN BED. NO S/S OF ACUTE DISTRESS. VS STABLE. CALM/COOPERATIVE. IV WNL TO [facility]. SALINE LOCKED FOR TRANSPORT. NO SOB ON ROOM AIR. NO CHEST PAIN. NO N/V. URINE OUTPUT 2075CC YELLOW/CLEAR. VOIDS FREELY. BELONGINGS WITH PATIENT. TO BE TRANSPORTED BY WHEELCHAIR. AMBULATORY WITH FULL ROM. GAIT STEADY. ACCOMPANIED BY [facility] OFFICER.
--- NOTE | 2019-07-06 14:45 | NUR ---
PATIENT WAS BROUGHT UP FROM ICU BY ERICA RN/ PATIENT STABLE, SITTING IN WHEELCHAIR , DENIES PAIN, STATES THAT HE FEELS DIZZY AT TIMES. SYSTOLIC BLOOD PRESSURE AT THIS TIME WAS 99. TELE 6 PLACES ON PATIENT CHEST, SHOWING NSR. EDUCATED PATIENT TO CHANGE POSITIONS SLOWLY. CALL LIGHT PLACED WITHIN REACH,X2 GUARDS AT BEDSIDE. WILL CONTINUE TO MONITOR
--- NOTE | 2019-07-06 18:00 | NUR ---
PATIENT AMBULATED TO RESTROOM. FEELING WEAK WHEN STANDING, REPORTED STOOL WAS BLACK, NOT VISUALIZED BY NURSING STAFF. INSTRUCTED PATIENT TO USE CALL ILGHT AND TELL STAFF IF NEEDING TO GET UP. NEED TO CHANGE POSITIONS SLOWLY
[2019-07-06 19:20] VITALS: BP 97/56
--- NOTE | 2019-07-06 19:20 | NUR ---
RECIVED PT AWAKE ALERT AND VERBALLY RESPONSIVE.C/O HEADACHE 10/12 WHEN HE COUGHS.DENIES CHESTPAIN AT THIS TIME.LATEST BP 97/56 MMHG,HR 90.PLACED ON [place] POSIIION.GUARDS AT BEDSIDE.DENIES SUICIDAL IDEATION AT THIS TIME,VERBALIZES ANXIETY.ENCOURAGED TO VERBALIZED FEELINGS/THOUGHTS.WILL CONTINUE TO MONITOR.
--- NOTE | 2019-07-06 19:30 | NUR ---
GAVE HAND OFF REPORT TO NIGHT NURSE, BIEN. MARTINEZ RESTING AT THIS TIME WITH NO COMPLAINTS. ENDORSED CARE
--- NOTE | 2019-07-07 04:38 | NUR ---
PT SLEPT WELL ALL NIGHT WITH GUARDS AT BEDSIDE.REFUSED PSYCHE MEDS LAST NIGHT,INFORMED OF RISKS AND BENEFITS BUT STRONGLY REFUSED.NO ASE NOTED FROM ZOSYN IV ATB.CONTINOUSLY ENCOURAGED TO VERBALIZED FEELINGS/THOUGHTS.CALM AT THIS TIME.WILL CONTINUE TO MONITOR.
[2019-07-07 05:02] VITALS: BP 103/58
[2019-07-07 06:18] LABS: BASOPHIL % 0.5 % (0-2); PLATELET COUNT 191 x10^3mcL (130-400)
[2019-07-07 06:28] LABS: RED CELL DISTRIBUTION WIDTH 15.8 % (11.5-14.5)
--- NOTE | 2019-07-07 07:00 | NUR ---
RECEIVED REPORT FROM LANDEN RN AT BEDSIDE, PT RESTING IN BED IN NO ACUTE DISTRESS, GUARDS AT BEDSIDE
--- NOTE | 2019-07-07 07:30 | NUR ---
PT RESTING IN BED, IN NO ACUTE DISTRESS, VERBAL, ABLE TO MAKE NEEDS KNOWN, CALM AND COPPERATIVE AT THIS TIME, NO FACIAL DROOP/SLURRED SPEECH, PERRLA, RESP E/U, RA, CTAB, NO SOB/COUGH, TELE #6, SR, HR-81, DENIED CP/PALPITATION, DENIED PAIN/DISCOMFORT, DENIED DIZZINESS/N/V, ABD FLAT AND NON-TENDER TO TOUCH, BS ACTIVE X 4, AMBULATORY, CONTINENT, SKIN C/D/W, SEE SKIN ASSESSMENT, IV PATENT AND FLUSHING WELL, DRESSING CDI, PALP PULSES, CAP REFILL < 3S, EQUAL [employer], CUFF TO RLE, GUARDS AT BEDSIDE, ALL NEEDS ADDRESSED, SAFETY PROTOCOL MAINTAINED, CONTINUE TO MONITOR
[2019-07-07 08:50] VITALS: BP 99/49
[2019-07-07 09:40] LABS: ALKALINE PHOSPHATASE 110 U/L (46-116); ALT/SGPT 457 U/L (16-63); AST/SGOT 181 U/L (15-37); CALCIUM 7.8 mg/dL (8.5-10.1); CARBON DIOXIDE 30.8 mmol/L (21-32); CHLORIDE SERUM 110 mmol/L (98-107); CREATININE SERUM 0.8 mg/dL (0.7-1.3); GFR1 > 60 mL/min; GLUCOSE SERUM 89 mg/dL (74-106); POTASSIUM SERUM 3.8 mmol/L (3.5-5.1); SODIUM SERUM 144 mmol/L (136-145)
[2019-07-07 09:47] LABS: ALBUMIN 2.4 g/dL (3.4-5.0); TOTAL PROTEIN, SERUM 5.2 g/dL (6.4-8.2)
--- NOTE | 2019-07-07 09:50 | NUR ---
AM MED GIVEN PER MD ORDER PER EMAR, TOLERATED WELL, NO ASE NOTED AT THIS TIME, EDUCATED PT R/T MED, ASE AND MONITOR, VERBALLY UNDERSTANDING, REPORTED HEARING VOICE BUT NO SI AT THIS TIME, SAFETY PRECAUTION MAINTAINED, GUARDS AT BEDSIDE, CONTINUE TO MONITOR
[2019-07-07 12:48] VITALS: BP 118/67
--- NOTE | 2019-07-07 14:20 | NUR ---
PT SLEEPING IN BED, IN NO ACUTE DISTRESS, STILL HEARING VOICE BUT REPORT NO SI IDEATION AT THIS TIME, BM X 1, BLACK STOOL, SOFT, DR SALES MADE AWARE, DR CHADWICK MADE AWARE AND SEEN PT, NEW ORDER OBTAINED, CHARGE NURSE ASHISH MADE AWARE
--- NOTE | 2019-07-07 17:12 | NUR ---
PT RESTING IN BED, IN NO ACUTE DISTRESS, DENIED PAIN/DISCOMFORT/BRADEN, DENIED N/V/D, RESP EVEN, RA, NO SOB/COUGH, TELE #6, SKIN C/D/W, IV PATENT AND FLUSHING WELL, DRESSING CDI, ALL NEEDS ADDRESSED AT THIS TIME, SAFETY PROTOCOL MAINTAINED, COMFORT MEASURE PROVIDED, GUARDS AT BEDSIDE, WILL ENDORSE TO ONCOMING RN
[2019-07-07 17:14] VITALS: BP 105/48
[2019-07-07 19:05] VITALS: BP 114/73
--- NOTE | 2019-07-07 19:05 | NUR ---
RECEIVED PT VOMITING AT THIS TIME TO 800 ML FOOD CONTENT VOMITUS.PHENERGAN 12.5 MG IVP ADMINISTERED.DENIES CHESTPAIN.BP 114/73 MMHG,HR 80.GUARDS AT BEDSIDE.DENIES HEADACHE OR DIZZINESS.PT VERBALIZES HEARING VOICES TO HURT HIMSELF.ENCOURAGED TO VERBALIZED HIS FEELINGS AND THOUGHTS.WILL CONTINUE TO MONITOR.
--- NOTE | 2019-07-07 20:23 | NUR ---
CALLED DR. SALES FOR PSYCH CONSULT.PT CONTINUED TO VERBALIZED HEARING VOICES AND SUICIDAL IDEATION.DR. GLYNNREES IN MAKING ROUNDS AND MADE AWARE OF CONSULT.
--- NOTE | 2019-07-08 04:41 | NUR ---
PT SLEPT WITH INTERVALS WITH GUARDS AT BEDSIDE.CONTINUE TO ENCOURAGED TO VERBALIZED FEELINGS AND THOUGHTS.DENIES SUICIDAL IDEATION AT THIS TIME.ALL NEEDS MET.WILL CONTINUE TO MONITOR.
--- NOTE | 2019-07-08 05:03 | NUR ---
LATEST BP THIS AM @ 103/63 MMHG,HR 81.WILL ENDORSE TO AM NURSE.
[2019-07-08 05:20] VITALS: BP 103/63
--- NOTE | 2019-07-08 07:15 | NUR ---
RECIEVED PT RESTING IN BED WITH NO C/O DISTRESS. GUARDS AT BEDSIDE. TELE#6 CONNECTED TO PT, DENIES CP OR PRESSURE. LUNGS CTAB. IV TO RFA CDI/PATENT. SAFETY PRECAUTINS IN PLACE, CALL LIGHT WITHIN REACH, WILL MONITOR.
[2019-07-08 09:00] VITALS: BP 93/54
--- NOTE | 2019-07-08 09:20 | NUR ---
TYLENOL GIVEN PER EMAR FOR C/O 01/11 BRADEN, WILL REASSESS.
[2019-07-08 12:24] VITALS: BP 98/58
--- NOTE | 2019-07-08 13:00 | NUR ---
PT STABLE WITH NO C/O PAIN OR DISTRESS. GUARDS AT BEDSIDE, CALL LIGHT WITHIN REACH, WILL MONITOR.
[2019-07-08 15:00] VITALS: BP 103/65
--- NOTE | 2019-07-08 18:07 | NUR ---
PT STABLE FOR DISCHARGE PER MD ORDER. ALL DISCHARGE INSTRUCTIONS, EDUCATION, AND PRESCRIPTIONS EXPLAINED TO PT AND PAPERWORK GIVEN TO GUARDS. VS WNL AND TELE BOX#6 RETURNED TO MT. IV REMOVED WITH CATHETER INTACT, NO REDNESS OR INFLAMMATION NOTED TO SITE. PT/GUARDS CURRENTLY WAITING ON TRANSPORTATION TO ARRIVE.
--- NOTE | 2019-07-08 19:25 | NUR ---
RECEIVED PT IN BED AWAKE, ALERT,ORIENTYED X4. PT HAS NO C/O PAIN OR DISCOMFORT. HE IS WAITING FOR TRANSPOTATION AT THIS TIME. PT TO GO BACK TO [facility]. CALL LIGHT W/IN REACH.
[2019-07-08 20:51] VITALS: BP 103/58
--- NOTE | 2019-07-08 21:06 | NUR ---
PT TAKEN BACK TO [facility] ORDERED. PT IN STABLE CONDITION UPON DISCHARGE.
== END 2019-07-08 21:11 | disposition other institution (70) | DRG 917 ==
LOC: ED 13:51 → MU 15:49 → IC 15:49 → MU 17:53 → IC 07-04 05:43 → DU 07-06 14:20 → IC 07-06 14:24 → DU 07-06 14:56
PROVIDERS: Emergency Medicine; Internal Medicine Gastroenterology; ADMIT Internal Medicine
PROC: 5A1945Z Respiratory Ventilation, 24-96 Consecutive Hours (ICD-10-PCS; principal; 2019-07-04 09:15)
PROC: 0BH17EZ Insertion of Endotracheal Airway into Trachea, Via Natural or Artificial Opening (ICD-10-PCS; 2019-07-04 09:15)
PROC: 30233N1 Transfusion of Nonautologous Red Blood Cells into Peripheral Vein, Percutaneous Approach (ICD-10-PCS; 2019-07-05)
DX: T42.1X2A Poisoning by iminostilbenes, intentional self-harm, initial encounter (principal); J69.0 Pneumonitis due to inhalation of food and vomit; K22.6 Gastro-esophageal laceration-hemorrhage syndrome; J96.01 Acute respiratory failure with hypoxia; K92.2 Gastrointestinal hemorrhage, unspecified; I95.2 Hypotension due to drugs; F41.8 Other specified anxiety disorders; F15.10 Other stimulant abuse, uncomplicated; Y92.143 Cell of prison as the place of occurrence of the external cause; Z68.24 Body mass index [BMI] 24.0-24.9, adult; Z88.6 Allergy status to analgesic agent; F32.9 Major depressive disorder, single episode, unspecified; F41.9 Anxiety disorder, unspecified; Y92.89 Other specified places as the place of occurrence of the external cause; D50.0 Iron deficiency anemia secondary to blood loss (chronic)
CPT/HCPCS: 31500; 43235; 97116-GP; A4628; C9113; G0378; G0480; J0171; J0330; J1200; J1610; J2060; J2250; J2310; J2543; J2550; J2704; J2765; J2916; J3010; J3490; J7030; J7040; J7042; J7050; J7620; P9016; Q0092; Q0163